=== PATIENT | female | born 1985 | race Two or more races ===

== ENCOUNTER 2024-10-21 13:23 | Outpatient (AMB) | payer MEDICAID, SELFPAY ==
[2024-10-21 13:34] VITALS: BP 138/90; PULSE 79; RESP 18; TEMP 36; O2SAT 98; BMI 43.2
--- NOTE | 2024-10-21 13:38 | GYNCLNT_ITS ---
Vital Signs 10/21/24 13:34 10/21/24 13:43 Height 1.73 m Height Method Stated Weight 128.99 kg Weight Measurement Method Standing Scale BMI 43.2 BP 138/90 H 138/90 H Blood Pressure Source Automatic Cuff Blood Pressure Location Left Upper Arm Position Sitting Respiration 18 18 Pulse 79 79 Pulse Source Monitor Temp 96.8 F 96.8 F Temp Source Oral Pulse Oximetry (%) 98 98 Oxygen Delivery Method Room Air Allergies/Home Meds Allergies & Medications Allergies compazine Allergy (Uncoded 10/21/24 13:38) Medication Reconciliation metoprolol succinate 25 mg tablet,extended release 24 hr 25 mg PO QDAY 10/21/24 [History Confirmed 10/21/24] Intake Visit Data Collection New Patient or Established: New Patient (never been to [facility]) Reason for Visit:: PATIENT WAS REFERRED Seen by Clinical Staff ONLY (RN/MA): No Home Health Care Coordinator Required: No Do You Feel Safe at Home: Yes Authorities Contacted: N/A PCP or OBGYN visit in last 3 months: Yes Hx Now: No Are you currently on any form of Control: No Last menstrual period: 10/21/24 Pain Present Currently: No Pain Scale Used: Sheldon-Choe/Numerical Pain scale:: 0 Smoking Status Smoking Status: Never smoker 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 1. Little interest or pleasure in doing things: not at all 2. Feeling down, depressed, or hopeless: not at all Total score: 0 PHQ-9 3. Trouble falling or staying asleep, or sleeping too much: Not at all 4. Feeling tired or having little energy: Not at all 5. Poor appetite or overeating: Not at all 6. Feeling bad about yourself - or that you are a failure or have let yourself or your family down: Not at all 7. Trouble concentrating on things, such as reading the newspaper or watching television: Not at all 8. Moving or speaking so slowly that other people could have noticed? - Or the opposite - being so fidgety or restless that you have been moving around a lot more than usual: not at all 9. Thoughts that you would be better off or of hurting yourself in some way: Not at all Total score: 0 If you checked off any problems, how difficult have these problems made it for you to do your work, take care of things at home, or get along with other p eople?: not difficult at all Source: Developed by Drs. Arik Perdomo, Hanna Moss, Bj Ragsdale and colleagues, with an educational daniela from [employer]. Depression screen completed yes Social History Living Situation History Marital Status: Single Lives With: Children Housing: House Tobacco History Smoking Status: Never smoker Second Hand Smoke Exposure: No Alcohol History Alcohol Intake: Never Domestic Abuse History Do You Feel Safe at Home: Yes History of Present Illness HPI Narrative Cecy Marie, a 38-year-old female with a history of left oophorectomy at age 14, presents for evaluation of pelvic pain on referral from [facility]. She reports experiencing pelvic pain since last year, which started abruptly without any associated fever or urinary tract infection. The patient describes the pain as sharp and located inside her pelvis. She notes that the pain is particularly severe after sexual intercourse, specifically after orgasm. Additionally, she reports experiencing abdominal swelling at times. The patient mentions a history of fibroids diagnosed a long time ago and was recently informed about having an ovarian cyst. She also reports irregular menstrual cycles, with some months of amenorrhea alternating with heavy bleeding. The patient experiences hot flashes, which she associates with possible perimenopause. Cecy's gynecological history is significant for tubal ligation at age 24 and a left oophorectomy at age 14 due to a 20-pound ovarian cyst. She reports starting her menstrual periods late at age 13, initially experiencing heavy bleeding for 3 days with significant pain. The patient has three children, with two vaginal deliveries and one section due to placenta previa. Recent healthcare interactions include a visit to the [facility] on July 22, 2024, where the ovarian cyst, uterine leiomyoma, and pelvic pain were detected. The patient expresses concern about the possibility of cancer, as mentioned by hospital staff, which has caused her anxiety. Obstetric History: - GPAL: A0 L3 - history: - Last complicated by placenta praevia - Three daughters delivered Medical History: - Unspecified right-sided ovarian cyst - Leiomyoma of the uterus - Pelvic pain - Low HDL cholesterol - Slightly elevated hemoglobin A1c (6.0) - Fibroids Surgical History: - Tubal ligation at age 24 - Left ovary removal at age 14 due to a 20-pound cyst Family History: - Daughters (3): One complicated by placenta praevia Social History: - Children: Has three daughters - Reproductive History: Tubal ligation at age 24 ROS: General: Positive for hot flashes. Gastrointestinal: Positive for lower abdominal swelling. Genitourinary: Positive for irregular menstrual cycles, heavy menstrual bleeding, and dyspareunia. Diagnostic Test Results and Labs: - Lipid panel (06/22/2024): HDL cholesterol low (specific value not provided) - Hemoglobin A1c (06/22/2024): 6.0% (slightly elevated) - Creatinine (06/22/2024): 0.53 - Hepatitis panel (06/22/2024): Negative - PAP smear (06/22/2024): Negative - HPV test (06/22/2024): Negative - Hemoglobin A1c (02/21/2024): 6.3% Pelvic ultrasound trans-abdominal (07/22/2024): - Uterus: 12.7 x 5.3 x 7.1 cm - Transmural hypoechoic mass in posterior fundus: 3.2 cm, no internal vascularity - Endometrial stripe: 9 mm - Right ovary: 3 x 2.5 x 2.9 cm - Right ovarian anechoic cyst: 2.5 cm - Left ovary: Surgically absent Exam General General Appearance: alert, in no apparent distress and healthy appearing Head Head exam: atraumatic Neck Neck exam: Present normal inspection and trachea midline Chest Chest inspection: Present normal inspection and symmetric chest wall rise External exam: Present normal external exam; Absent tenderness Neuro Neurological exam: Present oriented X3 Psych Psychiatric exam: Present normal affect and normal mood Office Procedures OB Clinic LOC & Office Proc's Nursing/Assessment Patient Status: Initial/New Patient OB Clinic Nursing Assessment: Medication Reconciliation, Update PMH in EMR and Vital Signs OB Clinic Coordination of Care: Education Complex Pt/Fam, Consent,records obtained, informed consent, Lab and Imaging orders, Results/Orders obtained and Staff clarify orders New Patient Charge New Patient Point Assignment: [id number] New Patient Point Charge: SCULLION CHIEF Level 3 (4299-5925) Assessment & Plan Diagnosis / Problem List (1) Pelvic and perineal pain: Status: Acute (2) Abnormal uterine and vaginal bleeding, unspecified: Status: Acute Plan Pelvic Pain: - Pelvic pain since last year, particularly after intercourse. - Pain described as sharp and internal. - Ultrasound on 07/22/2024 revealed: * 3.2 cm transmural hypoechoic mass in posterior fundus of uterus (fibroid) * 2.5 cm anechoic cyst in right ovary - Left ovary surgically removed at age 14 due to 20-pound cyst. - History of placenta previa with third . - Differential diagnoses: fibroid-related pain, ovarian cyst pain, adhesions, perimenopausal symptoms. Plan: - Order blood tests to check menopause hormones. - Review blood test results in 1 week to 10 days. - Based on hormone results: * If entering menopause: Consider medical management for 3-6 months - Discuss hormone cream application for symptom relief * If not in menopause: Consider surgical intervention - Discuss hysterectomy and cyst removal, preserving right ovary - Consider diagnostic hysteroscopy if medical management chosen. - Educate patient on potential causes of pain. - Reassure patient that current imaging does not suggest cancer. Irregular Menstrual Cycles: - Some months of amenorrhea alternating with heavy bleeding. - Hot flashes reported. - Previous german instructor indicated patient was entering pre-menopause. Plan: - Evaluate hormone levels with blood tests to confirm perimenopausal status. - Discuss hormone therapy options based on test results. - Educate patient on perimenopausal symptoms and management strategies. Uterine Leiomyoma: - 3.2 cm transmural hypoechoic mass in posterior fundus of uterus. - Uterus measured 12.7 x 5.3 x 7.1 cm. Plan: - Monitor fibroid size and symptoms. - Discuss treatment options based on hormone test results and patient's symptoms. - Include fibroid removal in operative plan if surgical management chosen. Right Ovarian Cyst: - 2.5 cm anechoic cyst in right ovary. - Right ovary measured 3 x 2.5 x 2.9 cm. Plan: - Monitor cyst size and symptoms. - Include cyst removal in operative plan if surgical management chosen, while preserving right ovary. History of Left Oophorectomy: - Left ovary surgically removed at age 14 due to 20-pound cyst. Plan: - Consider ovary-sparing approach if surgery indicated. - Educate patient on importance of preserving right ovary for hormonal health. Elevated Hemoglobin A1c: - Recent hemoglobin A1c: 6.0% (slightly elevated). - Previous A1c on 02/21/2024: 6.3%. Plan: - Educate patient on importance of blood sugar control. - Recommend lifestyle modifications including diet and exercise. - Consider referral to primary care for diabetes management if not already addressed.
[2024-10-21 13:43] VITALS: BP 138/90; PULSE 79; RESP 18; TEMP 36; O2SAT 98
== END 2024-10-21 13:59 | disposition home or self-care (01) ==
LOC: HODSOBC 13:23
PROVIDERS: PCP Nurse Practitioner Family; Referring Provider Nurse Practitioner Family; Supervising Provider Obstetrics & Gynecology; Visit Provider Obstetrics & Gynecology
DX: N93.9 Abnormal uterine and vaginal bleeding, unspecified (principal); D25.9 Leiomyoma of uterus, unspecified; N83.201 Unspecified ovarian cyst, right side; R23.2 Flushing; Z87.42 Personal history of other diseases of the female genital tract; Z90.721 Acquired absence of ovaries, unilateral; Z98.51 Tubal ligation status
CPT/HCPCS: 99203; G0463

== ENCOUNTER 2024-11-05 15:09 | Outpatient (AMB) | payer MEDICAID, SELFPAY ==
[2024-11-05 15:35] VITALS: BP 126/83; PULSE 67; RESP 18; TEMP 35.9; O2SAT 98; BMI 43.0
--- NOTE | 2024-11-05 15:35 | AMB.GYNCLNOT ---
Vital Signs 11/05/24 15:35 Height 1.73 m Height Method Stated Weight 128.934 kg Weight Measurement Method Standing Scale BMI 43.0 BP 126/83 Blood Pressure Source Automatic Cuff Blood Pressure Location Left Upper Arm Position Sitting Respiration 18 Pulse 67 Pulse Source Monitor Temp 96.7 F L Temp Source Oral Pulse Oximetry (%) 98 Oxygen Delivery Method Room Air Allergies/Home Meds Allergies & Medications Allergies compazine Allergy (Uncoded 11/05/24 15:37) Medication Reconciliation metoprolol succinate 25 mg tablet,extended release 24 hr 25 mg PO QDAY 10/21/24 [History Confirmed 11/05/24] drospirenone 3 mg-ethinyl estradiol 0.02 mg tablet (KHOI (28)) 1 tab PO QDAY 84 days #84 tabs 11/05/24 [Rx] Intake Visit Data Collection New Patient or Established: Established Patient (seen at [facility] within 3 years) Reason for Visit:: LAB RESULTS Seen by Clinical Staff ONLY (RN/MA): No Rocket Test Fire Worker Required: No Do You Feel Safe at Home: Yes Authorities Contacted: N/A PCP or OBGYN visit in last 3 months: Yes Date of Last PCP or OBGYN visit: 10/21/24 Hx Now: No Are you currently on any form of Control: No Pain Present Currently: No Pain Scale Used: Sheldon-Choe/Numerical Pain scale:: 0 Smoking Status Smoking Status: Never smoker 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 1. Little interest or pleasure in doing things: not at all 2. Feeling down, depressed, or hopeless: not at all Total score: 0 PHQ-9 3. Trouble falling or staying asleep, or sleeping too much: Not at all 4. Feeling tired or having little energy: Not at all 5. Poor appetite or overeating: Not at all 6. Feeling bad about yourself - or that you are a failure or have let yourself or your family down: Not at all 7. Trouble concentrating on things, such as reading the newspaper or watching television: Not at all 8. Moving or speaking so slowly that other people could have noticed? - Or the opposite - being so fidgety or restless that you have been moving around a lot more than usual: not at all 9. Thoughts that you would be better off or of hurting yourself in some way: Not at all Total score: 0 If you checked off any problems, how difficult have these problems made it for you to do your work, take care of things at home, or get along with other people?: not difficult at all Source: Developed by Drs. Arik Perdomo, Hanna Moss, Bj Ragsdale and colleagues, with an educational daniela from [employer]. Depression screen completed yes Social History Living Situation History Lives With: Children Housing: House Tobacco History Smoking Status: Never smoker Second Hand Smoke Exposure: No Alcohol History Alcohol Intake: Never Domestic Abuse History Do You Feel Safe at Home: Yes History of Present Illness HPI Narrative Cecy Marie is a 38-year-old female presenting for review of lab results, with a history of left oophorectomy, bilateral tubal ligation (BTL), leiomyomas of uterus, and right ovarian cyst. Her chief complaints include pelvic pain, irregular menses, and hot flashes. The patient reports experiencing menopausal symptoms, including hot flashes. She also describes irregular menstrual patterns, stating, Sometimes in a month I have a normal period and the next one I have discharge. Her last menstrual period was on October 18, 2024. Cecy has a history of uterine ablation performed approximately 5 years ago in [place], though she is unsure of the exact physician who performed the procedure. 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 The patient inquires about the possibility of using control for her ovarian cysts. She also expresses concern about potential weight gain related to hormonal treatments. Medications and Supplements - control pill - Low dose - Previously taken - Ablation - Procedure performed approximately 5 years ago Review of Systems General: Positive for hot flashes. Genitourinary: Positive for irregular menses, pelvic pain, and vaginal discharge. Laboratory, Imaging, and Diagnostic Test Results - Date: 10/30/2024 - CA125: 13.3 (negative) - FSH: 20.1 (not in menopausal range) Exam General General Appearance: alert, in no apparent distress and healthy appearing Head Head exam: atraumatic Neck Neck exam: Present normal inspection and trachea midline Chest Chest inspection: Present normal inspection and symmetric chest wall rise External exam: Present normal external exam; Absent tenderness Neuro Neurological exam: Present oriented X3 Psych Psychiatric exam: Present normal affect and normal mood Office Procedures OB Clinic LOC & Office Proc's Nursing/Assessment Patient Status: Established Patient OB Clinic Nursing Assessment: Medication Reconciliation, Update PMH in EMR and Vital Signs OB Clinic Coordination of Care: Education Complex Pt/Fam, Consent,records obtained, informed consent, Lab and Imaging orders, Results/Orders obtained and Staff clarify orders Established Patient Charge Established Patient Point Assignment: 85 Established Patient Point Charge: Level 3 (80-115) Assessment & Plan Diagnosis / Problem List (1) Pelvic and perineal pain: Status: Acute (2) Abnormal uterine and vaginal bleeding, unspecified: Status: Acute Plan Cecy Marie is a 38-year-old female with a history of left oophorectomy, BTL, leiomyomas of uterus, and right ovarian cyst, presenting with pelvic pain, irregular menses, and menopausal symptoms. Irregular menses and abnormal uterine bleeding Assessment: Patient reports irregular menstrual patterns with normal periods alternating with discharge. History of endometrial ablation 5 years ago. Current symptoms suggest post-ablation syndrome. Recent labs (10/30/2024) show FSH of 20.1, which is not in the menopausal range. Last menstrual period was on October 18, 2024. Plan: - Perform diagnostic hysteroscopy with endometrial sampling - Perform diagnostic laparoscopy to evaluate remaining ovary, uterus, and fibroids - Consider repeat endometrial ablation pending diagnostic results and patient preference - Initiate low-dose oral contraceptives for symptom management - Start on November 17 or with next menstrual period, whichever comes first - Submit insurance authorization requests for planned procedures - Schedule follow-up to discuss procedure dates once insurance approval is obtained Menopausal symptoms (hot flashes) Assessment: Patient experiencing hot flashes, but FSH levels (20.1) are not in the menopausal range. Hormone therapy is contraindicated due to increased breast cancer risk. Differential diagnoses for hot flashes include pheochromocytoma, anxiety, or adrenal gland dysfunction. Plan: - Refer patient back to PCP for further evaluation of hot flashes, including workup for pheochromocytoma, anxiety, and adrenal gland dysfunction - Initiate low-dose oral contraceptives, which may help alleviate hot flashes Right ovarian cyst Assessment: Patient has a history of right ovarian cyst. Recent CA-125 level of 13.3 is negative, ruling out ovarian cancer. Plan: - Evaluate right ovary during planned diagnostic laparoscopy - Initiate low-dose oral contraceptives, which may help manage ovarian cysts
== END 2024-11-05 15:55 | disposition home or self-care (01) ==
LOC: HODSOBC 15:09
PROVIDERS: PCP Nurse Practitioner Family; Referring Provider Nurse Practitioner Family; Supervising Provider Obstetrics & Gynecology; Visit Provider Obstetrics & Gynecology
DX: N93.9 Abnormal uterine and vaginal bleeding, unspecified (principal); R10.2 Pelvic and perineal pain; Z87.42 Personal history of other diseases of the female genital tract; Z90.721 Acquired absence of ovaries, unilateral; Z98.51 Tubal ligation status
CPT/HCPCS: 99213; G0463

== ENCOUNTER 2024-12-30 06:20 | Day surgery (SDC) | payer MEDICAID, SELFPAY ==
[2024-12-26 14:30] VITALS: BMI 45.6
--- NOTE | 2024-12-26 14:50 | EKG_ITS ---
[facility] Test Date: 2024-12-26 Pat Name: JAMES MANNING Department: Room: - Gender: Female Photocopying Equipment Mechanic: HAROON : 1985 Requested By: Dheeraj Wilcox Order Number: [id number] Reading MD: Dheeraj Wilcox Measurements Intervals Deputy Rate: 69 P: 58 SD: 171 QRS: -2 QRSD: 85 T: 2 QT: 455 QTc: 488 Interpretive Statements SINUS RHYTHM LOW QRS VOLTAGE IN PRECORDIAL LEADS [QRS DEFLECTION < 1.0 mV IN CHEST LEADS] PROLONGED QT INTERVAL No previous ECG available for comparison /store/S0/[id number]
[2024-12-26 15:42] LABS: Basophils # (Auto) 0.1 Thou/mm3 (0.0-0.2); Basophils % (Auto) 1 % (0-2.5); Eosinophils # (Auto) 0.1 Thou/mm3 (0.0-0.5); Eosinophils % (Auto) 1 % (0-10); Hematocrit 34.2 % (36.0-46.0); Hemoglobin 11.0 g/dL (12.0-16.0); Immature Granulocytes Auto 0.01 Thou/mm3 (0.00-0.00); Lymphocytes # (Auto) 3.6 Thou/mm3 (1.0-4.8); Lymphocytes % (Auto) 33 % (10-50); Mean Corpuscular HGB Conc 32.2 g/dl (31.0-37.0); Mean Corpuscular Hemoglobin 28.1 pg (25.0-35.0); Mean Corpuscular Volume 87 fL (80-100); Monocytes # (Auto) 0.6 Thou/mm3 (0.0-0.8); Monocytes % (Auto) 6 % (0-12); Neutrophils # (Auto) 6.6 Thou/mm3 (1.8-7.7); Neutrophils % (Auto) 60 % (37-80); Nucleated Red Blood Cell # 0.00 Thou/mm3 (0.00-0.00); Nucleated Red Blood Cell % 0 /100 WBC (0); Platelet Count 388 Thou/mm3 (140-440); RDW Standard Deviation 46.7 fL (36.4-46.3); Red Blood Count 3.92 Miln/mm3 (4.00-5.20); White Blood Count 11.0 Thou/mm3 (3.6-11.0)
[2024-12-26 15:46] LABS: Alanine Aminotransferase 15 U/L (10-49); Albumin, Serum 4.5 gm/dL (3.5-5.0); Albumin/Globulin Ratio 1.6 (1.2-2.2); Alkaline Phosphatase 74 U/L (46-116); Anion Gap 9 (7-16); Aspartate Amino Transferase 21 U/L (0-34); BUN/Creatinine Ratio 15 Ratio (12-20); Bilirubin,Total 0.3 mg/dL (0.3-1.2); Blood Urea Nitrogen 9 mg/dL (9-23); Calcium 9.4 mg/dL (8.3-10.6); Calcium (Corrected) 9.4 mg/dL (8.5-10.1); Carbon Dioxide 27.1 mMol/L (20.0-31.0); Chloride 104 mMol/L (98-107); Creatinine (Component) 0.6 mg/dL (0.6-1.3); Estimated Creatinine Clearance 184.4 mL/min (>60); Globulin 2.8 gm/dL (2.3-3.5); Glucose 85 mg/dL (74-106); Osmolality,Calculated 277 (275-295); Potassium 3.9 mMol/L (3.4-5.1); Sodium 140 mMol/L (136-145); Total Protein 7.3 gm/dL (5.7-8.2); eGFR > 60 See Note
[2024-12-26 15:50] LABS: HCG,Qualitative Serum Negative
[2024-12-30] VITALS (8 sets, daily range): BP systolic 121–138; BP diastolic 67–77; PULSE 61–73; RESP 16–20; TEMP 36.1–36.4; O2SAT 93–100; BMI 43.3
[2024-12-30] MEDS: RINGERS LACTATED 1000 ML 1,000 ML 20 ML IV (07:12)
--- NOTE | 2024-12-30 07:23 | SUR.PREOP ---
Patient expressed gratitude for prayer before their procedure.
--- NOTE | 2024-12-30 08:37 | ESHP_ITS ---
Documentation for date of: 12/30/24 [employer]DLE SCHOOL BAND TEACHER - HPI History of Present Illness History of present illness: Ms. MANNING is a 38 year old female who is presenting for diagnostic laparoscopy and diagnostic hysteroscopy with possible endometrial ablation. Patient Patient has a history of perimenopausal abnormal uterine bleeding and has a history of endometrial ablation performed by a different physician 5 years ago. She was counseled about all treatment options including the possibility of failure of ablation and she has agreed to proceed with the procedure. Meds Home Medications and Allergies Home Medications ?Medication ?Instructions ?Recorded ?Confirmed ?Type metoprolol succinate 25 mg 25 mg PO QDAY 10/21/2412/13 History tablet,extended release 24 hr semaglutide (weight loss) 1.7 1.7 mg subcut QWEEK 12/1312/26/24 History mg/0.75 mL subcutaneous pen injector (Wegovy) Allergies Allergy/AdvReac Type Severity Reaction Status Date / Time compazine Allergy Uncoded 12/30/24 07:13 Exam - MIDDLE SCHOOL BAND TEACHER Vital Signs Temp Pulse Resp BP Pulse Ox 97.6 F 65 17 130/75 97 12/30/24 07:05 12/30/24 07:05 12/30/24 07:05 12/30/24 07:05 12/30/24 07:05 Constitutional Constitutional: no acute distress Routine HEENT Exam Head: Present normocephalic and atraumatic Eye: Present EOMI and PERRL ENT: Present mucous membranes moist Routine Neck Exam Neck: Present supple and trachea midline Routine Respiratory Exam Respiratory: Present chest non-tender, lungs clear, normal breath sounds and no resp distress Routine Cardiovascular Exam Cardiovascular: Present RRR Routine Abdominal Exam Abdominal: Present soft and normoactive bowel sounds Routine Extremities Exam Extremities: Present full ROM Routine Skin Exam Skin: Present intact and dry Routine Neurological Exam Neurological: Present alert, oriented X3 and CN II-XII intact Routine Psychiatric Exam Psychiatric: Present normal affect and normal thought process [employer] BAND TEACHER - Results Labs 12/26/24 14:56 12/26/24 14:56 Assessment and Plan Assessment and plan (1) Abnormal uterine and vaginal bleeding, unspecified: Status: Acute Assessment and plan: Patient scheduled for diagnostic laparoscopy followed by diagnostic hysteroscopy with repeat ablation Orders as per attached physician order sheet Consent forms verified and signed Scheduled for the OR (2) Pelvic and perineal pain: Status: Acute Quality Measures Quality Measures VTE prophylaxis
--- NOTE | 2024-12-30 09:38 | PD.GYNPROC ---
Operative Note - RECREATION SUPERVISOR Procedure Date of procedure: 01/15/25 Procedure Performed: Diagnostic hysteroscopy and diagnostic laparoscopy Indication: Evaluation of pelvic anatomy and uterine cavity; history concerning for intrauterine adhesions and chronic pelvic pain Procedure description: Informed consent was obtained and the patient was brought to the operating room. Identity was verified with two patient identifiers. General anesthesia was administered and the airway was secured. The patient was placed in the dorsal lithotomy position. The abdomen and perineum were prepped and draped in the usual sterile fashion, and a Sanchez catheter was inserted for continuous bladder drainage. A surgical timeout was performed. A 5 mm infraumbilical incision was made initially. However, entry could not be safely accomplished as dense omental and scar tissue were encountered directly beneath the umbilicus. A second incision was made approximately 2 cm superior to the umbilicus, and successful peritoneal entry was obtained. Pneumoperitoneum was established and laparoscopic visualization was achieved. A thorough inspection of the abdomen and pelvis was performed. Behind the patient's vertical midline skin scar, a thick band of omentum containing multiple loops of bowel was densely adhered to the anterior abdominal wall. The pelvis was visualized and the uterus was noted to be enlarged. Adnexa could not be visualized bilaterally. The bladder appeared normal. No other gross pathology was identified. No adhesiolysis was performed. The procedure was purely diagnostic. Pneumoperitoneum was desufflated and laparoscopic ports were removed. Port sites were closed with 4-0 Monocryl in a subcuticular fashion. Attention was then turned to the perineum. The vaginal heath were retracted, and the cervix was visualized and grasped with a single-tooth tenaculum. The cervix was serially dilated to approximately 7 mm. The hysteroscope was assembled, primed, and introduced under direct visualization. Upon entry, the uterine cavity was found to be severely distorted, consistent with significant intrauterine adhesions (Asherman syndrome). There was inability to advance the hysteroscope fully to the fundus. Images were obtained and saved. No operative hysteroscopic intervention was performed, and the procedure was terminated. The patient was undraped and extubated in stable condition. She was transferred to the recovery room awake and hemodynamically stable. The procedure was well tolerated. All instrument, sponge, and lap counts were correct ?2. Specimen: none Estimated blood loss (ml): 10 Findings: Dense omental and scar tissue encountered at the umbilicus, preventing initial entry Band of omentum with multiple loops of bowel adherent behind vertical midline scar Uterus enlarged, Adnexa not visualized bilaterally Significant intrauterine distortion, Findings consistent with Asherman syndrome Inability to advance hysteroscope fully to the fundus No operative hysteroscopic intervention performed Complications: none Surgical staff Operation Date: 12/30/24 08:30 <No data on this case meets the specified criteria> Diagnosis Discharge Diagnosis (1) Abnormal uterine and vaginal bleeding, unspecified: Status: Acute (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
--- NOTE | 2024-12-30 09:49 | SUR.PHASEI ---
0949: Pt. AAOx4, vitals stable, breathing unlabored, no complaint of pain or nausea, x2 dermabond sites to ABD CDI, no active bleed noted, report received from MD Wilcox and Yassine FIGUEROA.
[2024-12-30] MEDS: ONDANSETRON INJ 2 MG/ML INJ 2 ML 4 MG IVP (10:36)
--- NOTE | 2024-12-30 10:53 | SUR.PHASEII ---
1053: Pt. AAOx4, vitals stable, breathing unlabored, no complaint of pain or nausea, dressing to ABD CDI, no active bleed noted, pt. tolerated a few sips of water well, pt. ambulated to wheelchair with steady gait and no assist, no complications. Gave discharge instructions to the pt. and her ride, both verbalized understanding and had no further questions. Pt. left with all personal belongings
== END 2024-12-30 10:53 | disposition home or self-care (01) ==
PROVIDERS: PCP Physician Assistant; Referring Provider Obstetrics & Gynecology; Visit Provider Obstetrics & Gynecology
PROC: 0U5B8ZZ Destruction of Endometrium, Via Natural or Artificial Opening Endoscopic (ICD-10-PCS; CPT 58563; principal; 2024-12-30 08:30)
PROC: (CPT 49320; 2024-12-30 08:30)
DX: N93.9 Abnormal uterine and vaginal bleeding, unspecified (principal); N85.6 Intrauterine synechiae; Z01.810 Encounter for preprocedural cardiovascular examination; R94.31 Abnormal electrocardiogram [ECG] [EKG]; N99.85 Post endometrial ablation syndrome; R10.2 Pelvic and perineal pain
CPT/HCPCS: 49320; 58563; 36415; 80053; 84703; 85025; 86850; 86900; 86901; 93005; A4217; A4649; J0131; J1100; J2371; J2405; J2704; J2710; J2765; J3010; J3490; J7120; A9270; J1596; J1805

== ENCOUNTER 2025-01-14 09:13 | Outpatient (AMB) | payer MEDICAID, SELFPAY ==
[2025-01-14 09:37] VITALS: BP 121/71; PULSE 70; RESP 16; TEMP 36.2; O2SAT 98
--- NOTE | 2025-01-14 09:37 | GYNCLNT_ITS ---
Vital Signs 01/14/25 09:37 Weight 127.063 kg Weight Measurement Method Standing Scale BP 121/71 Blood Pressure Source Automatic Cuff Blood Pressure Location Left Upper Arm Position Sitting Respiration 16 Pulse 70 Pulse Source Monitor Temp 97.2 F Temp Source Oral Pulse Oximetry (%) 98 Oxygen Delivery Method Room Air Allergies/Home Meds Allergies & Medications Allergies compazine Allergy (Uncoded 01/14/25 09:38) Medication Reconciliation metoprolol succinate 25 mg tablet,extended release 24 hr 25 mg PO QDAY 10/21/24 [History Confirmed 01/14/25] semaglutide (weight loss) 1.7 mg/0.75 mL subcutaneous pen injector (Wegovy) 1.7 mg subcut QWEEK 12/26/24 [History Confirmed 01/14/25] Intake Visit Data Collection New Patient or Established: Established Patient (seen at [facility] within 3 years) Reason for Visit:: OBC Seen by Clinical Staff ONLY (RN/MA): No [employer] Required: No Do You Feel Safe at Home: Yes Authorities Contacted: N/A PCP or OBGYN visit in last 3 months: Yes Date of Last PCP or OBGYN visit: 12/27/24 Hx Now: No Are you currently on any form of Control: No Last menstrual period: 11/19/24 Pain Present Currently: No Pain Scale Used: Sheldon-Choe/Numerical Pain scale:: 0 Smoking Status Smoking Status: Never smoker 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 Menstrual regularity: irregular Flow: heavy Monthly: Yes Age at menarche: 13 Menopausal: No Currently sexually active: Yes LEASE BROKER: Past Medical History Past Medical History: No Hx Neurological Disorders, Yes Hx Cardiac Disorders, No Hx Cancer, Yes Hx Blood Disorders, Yes Hx Anemia, Yes Hx Gastrointestinal Disorders, No Hx Renal Disease, No Hx Diabetes Mellitus Type 1 and No Hx Diabetes Mellitus Type 2 Questionnaires Covid-19 Vaccine Questionnaire Has patient been vacinated for Covid-19 Have you been vacinated for Covid-19: Yes PHQ-9 PHQ-2 Over the last 2 weeks, how often have you been bothered by any of the following problems? 1. Little interest or pleasure in doing things: not at all 2. Feeling down, depressed, or hopeless: not at all Total score: 0 PHQ-9 3. Trouble falling or staying asleep, or sleeping too much: Not at all 4. Feeling tired or having little energy: Not at all 5. Poor appetite or overeating: Not at all 6. Feeling bad about yourself - or that you are a failure or have let yourself or your family down: Not at all 7. Trouble concentrating on things, such as reading the newspaper or watching television: Not at all 8. Moving or speaking so slowly that other people could have noticed? - Or the opposite - being so fidgety or restless that you have been moving around a lot more than usual: not at all 9. Thoughts that you would be better off or of hurting yourself in some way: Not at all Total score: 0 If you checked off any problems, how difficult have these problems made it for you to do your work, take care of things at home, or get along with other people?: not difficult at all Source: Developed by Drs. Arik Perdomo, Hanna Moss, Bj Ragsdale and colleagues, with an educational daniela from [employer]. Depression screen completed yes Social History Living Situation History Lives With: Children Housing: House Tobacco History Smoking Status: Never smoker Second Hand Smoke Exposure: No Alcohol History Alcohol Intake: Never Domestic Abuse History Do You Feel Safe at Home: Yes History of Present Illness HPI Narrative Cecy Marie presents for follow-up after a combined diagnostic laparoscopy and hysteroscopy with constant pain and difficulty bending over due to her surgical findings and complications. The patient's previous surgery revealed dense omental scar tissue at the umbilicus, a band of omentum with multiple loops of bowel behind the vertical mi dline scar, an enlarged uterus, and significant intrauterine distortion consistent with Asherman syndrome. The adnexa were not visualized bilaterally, and the hysteroscope could not be fully advanced to the fundus. Since the surgery, Cecy has experienced a small amount of bleeding. Cecy describes her pain as constant and severe enough to impair her ability to bend over. She also reports difficulty with pap smears due to scarring and distortion of her anatomy. These symptoms are significantly impacting her daily functioning and quality of life. The patient expresses concern about her ability to work, indicating a need for a [id number] note. She is employed and requires a [id number] note. ROS: General: Positive for constant pain. Musculoskeletal: Positive for difficulty bending over. Genitourinary: Positive for minimal vaginal bleeding. Exam General General Appearance: alert, in no apparent distress and healthy appearing Head Head exam: atraumatic Neck Neck exam: Present normal inspection and trachea midline Chest Chest inspection: Present normal inspection and symmetric chest wall rise External exam: Present normal external exam; Absent tenderness Neuro Neurological exam: Present oriented X3 Psych Psychiatric exam: Present normal affect and normal mood Office Procedures OB Clinic LOC & Office Proc's Nursing/Assessment Patient Status: Established Patient OB Clinic Nursing Assessment: Medication Reconciliation, Update PMH in EMR and Vital Signs OB Clinic Coordination of Care: Education Complex Pt/Fam, Consent,records obtained, informed consent, Lab and Imaging orders and Staff clarify orders Established Patient Charge Established Patient Point Assignment: 80 Established Patient Point Charge: EP Level 3 (80-115) Assessment & Plan Diagnosis / Problem List (1) Intra-abdominal adhesions: Status: Acute (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 - Enlarged uterus with bilaterally non-visualized adnexa. - Significant intrauterine distortion consistent with Asherman syndrome with inability to advance hysteroscope fully to fundus. - Patient reports constant pain and difficulty bending over. Plan: - Refer patient to minimally invasive surgeon in [place] for consultation regarding robotic surgery vs. open hysterectomy. - Defer pap smear until surgical intervention is decided and performed. - Provide work note for return to work tomorrow. - Provide letter explaining pap smear deferral for primary care physician.
== END 2025-01-14 10:31 | disposition home or self-care (01) ==
LOC: HODSOBC 09:13
PROVIDERS: PCP Physician Assistant; Referring Provider Physician Assistant; Supervising Provider Obstetrics & Gynecology; Visit Provider Obstetrics & Gynecology
DX: Z48.816 Encounter for surgical aftercare following surgery on the genitourinary system (principal); K66.0 Peritoneal adhesions (postprocedural) (postinfection); N99.85 Post endometrial ablation syndrome; N93.9 Abnormal uterine and vaginal bleeding, unspecified; N85.2 Hypertrophy of uterus
CPT/HCPCS: 99213; G0463